=== PATIENT | male | born 1955 | race African-American/Black ===

== ENCOUNTER 2017-12-17 19:15 | Observation (INO) | payer OTHER ==
[2017-12-17] MEDS ORDERED: NS 0.9% 1000 ML* 1,000 ML IV ONE ×2 (19:18→20:18)
--- NOTE | 2017-12-17 19:40 | RAD ---
HISTORY: Neurological changes COMPARISONS: May 29, 2013 TECHNIQUE: Multiple contiguous axial CT scans were obtained of the head without intravenous contrast. FINDINGS: The study is limited by patient motion artifact. HEMORRHAGE/INFARCT: There is no hemorrhage or acute infarct. MASSES/SHIFT: There is no mass or shift. EXTRA-AXIAL SPACES: There are no extra-axial fluid collections. SULCI AND VENTRICLES: The sulci and ventricles are normal in size and position for the patient's stated age. CEREBRUM: There is right frontal encephalomalacia consistent with remote infarct. There is remote infarct of the left insula and betts radiata. There is a chronic lacunar infarct of the right caudate head. There is hypoattenuation of the periventricular and subcortical white matter. BRAINSTEM: There are no focal parenchymal abnormalities. CEREBELLUM: There are no focal parenchymal abnormalities. VESSELS: The vessels are grossly normal. PARANASAL SINUSES: The paranasal sinuses are clear. ORBITS: The orbits are unremarkable. BONES AND SOFT TISSUE: No bone or soft tissue abnormalities are noted. OTHER: None IMPRESSION: REMOTE INFARCTS. CHRONIC SMALL VESSEL ISCHEMIC CHANGES. NO ACUTE INTRACRANIAL PATHOLOGY. PRELIMINARY FINDINGS WERE DISCUSSED WITH DR. GUEVARA AT APPROXIMATELY 7:34 PM ON DECEMBER 17, 2017.
[2017-12-17 19:54] LABS: ABS Basophils 0 10^3/ul (0-0.2); ABS Eosinophils 0.1 10^3/ul (0-0.6); ABS Lymphocytes 1.3 10^3/ul (1.0-4.8); ABS Monocytes 0.3 10^3/ul (0-0.8); ABS Neutrophils 2.2 10^3/ul (1.5-7.7); ABS Nucleated RBC 0 10^3/ul; Eosinophil % 2.5 % (0-6); Hematocrit 43 % (42-52); Hemoglobin 14.7 g/dl (14.0-18.0); Lymphocyte % 32.3 % (25-47); Mean Corpuscular HGB Conc 34 g/dl (31-36); Mean Corpuscular Hemoglobin 30 pg (27-31); Mean Corpuscular Volume 88 fL (80-94); Mean Platelet Volume 9 um3 (7.4-10.4); Nucleated Red Blood Cells % 0.1; Platelet Count 183 10^3/ul (150-450); Red Blood Count 4.93 10^6/ul (4.0-5.4); Red Cell Distribution Width 13 % (10.5-15)
[2017-12-17] MEDS ORDERED: levETIRAcetam IV* 1,000 MG in NS 0.9% 100 ML* 100 ML IVPB SCH (20:00)
[2017-12-17 20:09] LABS: INR 1.02 (0.77-1.02)
--- NOTE | 2017-12-17 20:32 | RAD ---
HISTORY: Neurological changes COMPARISONS: May 29, 2013 VIEWS: 1: frontal portable view of the chest at 8:12 PM FINDINGS: LINES AND TUBES: None. CARDIOMEDIASTINAL SILHOUETTE: The cardiomediastinal silhouette is normal for portable technique. PLEURA: The costophrenic angles are sharp. No pleural abnormalities are noted. LUNG PARENCHYMA: The lungs are clear. ABDOMEN: The upper abdomen is clear. There is no subphrenic gas. BONES AND SOFT TISSUES: No bone or soft tissue abnormalities are noted. IMPRESSION: NO ACTIVE CARDIOPULMONARY DISEASE.
[2017-12-17] MEDS ORDERED: Ondansetron INJ* 2 MG/ML VIAL IV PRN (21:47)
[2017-12-17] MEDS ORDERED: CMCS: Melatonin (NF) 3 MG TAB PO PRN (21:47)
--- NOTE | 2017-12-17 21:48 | ED ---
Hortencia Quezada Edward, scribed for Gayatri Thurston MD on 12/17/17 at 1930 . Neurological HPI - HPI Summary HPI Summary: 62 y/o male BIBA c/o whole body shakes earlier today, witnessed. Associated sx: foaming from the mouth, unresponsiveness and urinary incontinence. PMHx CVA 2012 w/ R sided weakness and 2015 R side CVA L side weakness, no PMHx seizures. Pt is wheelchair bound and does not walk. Pt was sitting at home watching TV with his daughter and watching when the pt's symptoms started. The symptoms are typical for a seizure. In the ED the pt does not c/o of new weakness. Pt states he is at his baseline. - History of Current Complaint Stated Complaint: CODE SAN Hx Obtained From: Patient Onset/Duration: Sudden Onset, Resolved Number of Seizures: 1 Character: Other: - whole body shakes, foaming from the mouth, urinary incontinence Frequency: Episodes x___ - 1 Seizure Character: Generalized Aggravating: Nothing Alleviating: Nothing Associated Signs and Symptoms: Positive: Seizure, Incontinent Bladder/Bowel - Additional Pertinent History Primary Care Physician: [id number] - Allergy/Home Medications Allergies/Adverse Reactions: Allergies Allergy/AdvReac Type Severity Reaction Status Date / Time No Known Allergies Allergy Verified 08/20/16 18:34 PMH/Surg Hx/FS Hx/Imm Hx Previously Healthy: No Endocrine/Hematology History: Reports: Hx Anticoagulant Therapy - BABY ASA DAILY Cardiovascular History: Reports: Hx Hypercholesterolemia, Hx Hypertension Denies: Hx Pacemaker/ICD History: Reports: Other Problems/Disorders - prostate ca Sensory History: Reports: Hx Contacts or Glasses Denies: Hx Hearing Aid Opthamlomology History: Reports: Hx Contacts or Glasses Neurological History: Comment Only: Hx Transient Ischemic Attacks (TIA) - pt states unsure, admission dx CVA Psychiatric History: Denies: Hx Panic Disorder - Cancer History Cancer Type, Location and Year: prostate Hx Radiation Therapy: Yes - Surgical History Surgery Procedure, Year, and Place: hernia surgery,prostate - Social History Alcohol Use: None Substance Use Type: Reports: None Smoking Status (MU): Never Smoked Tobacco Review of Systems Constitutional: Negative Eyes: Negative ENT: Negative Cardiovascular: Negative Respiratory: Negative Gastrointestinal: Negative Positive: incontinence - urinary Musculoskeletal: Negative Skin: Negative Neurological: Other - whole body shakes, unresponsiveness Psychological: Normal All Other Systems Reviewed And Are Negative: Yes Physical Exam - Summary Physical Exam Summary: VITAL SIGNS: Reviewed. GENERAL: ~Patient is a well-developed and nourished male who is lying comfortable in the stretcher. Patient is not in any acute respiratory distress. HEAD AND FACE: No signs of trauma. No ecchymosis, hematomas or skull depressions. No sinus tenderness. EYES: PERRLA, EOMI x 2, No injected conjunctiva, no nystagmus. EARS: Hearing grossly intact. Ear canals and tympanic membranes are within normal limits. MOUTH: Oropharynx within normal limits. NECK: Supple, trachea is midline, no adenopathy, no JVD, no carotid bruit, no c- spine tenderness, neck with full ROM. CHEST: Symmetric, no tenderness at palpation LUNGS: Clear to auscultation bilaterally. No wheezing or crackles. CVS: Regular rate and rhythm, S1 and S2 present, no murmurs or gallops appreciated. ABDOMEN: Soft, non-tender. No signs of distention. No rebound no guarding, and no masses palpated. Bowel sounds are normal. EXTREMITIES: FROM in major joints. No edema, no cyanosis or clubbing. NEURO: Alert and oriented x 3. Speech is hoarse but not slurred. Mild L side facial weakness, which is old. RUE 5/5 strength, LUE 4/5 strength which is old. Paraplegic spasticity of LE's. SKIN: Dry and warm Triage Information Reviewed: Yes Vital Signs Reviewed: Yes Diagnostics - Laboratory Result Diagrams: 12/17/17 19:45 12/17/17 19:45 Lab Statement: Any lab studies that have been ordered have been reviewed, and results considered in the medical decision making process. - Radiology CXR Xray Interpretation: No Acute Changes - No acute process Radiology Interpretation Completed By: ED Physician - CT BRAIN CT CT Interpretation: No Acute Changes - Old R side stroke with chronic changes CT Interpretation Completed By: ED Physician - Additional Comments Diagnostic Additional Comments: EKG - 19:46 - NSR @ 84 BPM. Normal axis. Normal interval. Non specific T wave changes in the inferior leads. Re-Evaluation - Re-Evaluation 19:50 Re-Evaluation Time: 19:50 Change: Unchanged - Discuss plan to treat with Keppra Course/Dx - Course Assessment/Plan: 62 y/o male BIBA. History of 2 CVA's. 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 Paged neurologist at [facility] and discussed the case. However, I believe the pt is not a candidate for CVA. CT shows no acute changes. Discussed the case with Dr. 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 Discussed with Dr. Mccullough at 20:20, who accepted the pt for admission. - Diagnoses Provider Diagnoses: New onset seizure - Physician Notifications Discussed Care Of Patient With: Gibson Mccullough Time Discussed With Above Provider: 20:20 Instructed by Provider To: Admit As Inpatient Discharge - Discharge Plan Condition: Stable Disposition: ADMITTED TO [facility] Referrals: Teddy Bridges MD [Primary Care Provider] - The documentation as recorded by the Hortencia nicole Edward accurately reflects the service I personally performed and the decisions made by me, Gayatri Thurston MD.
--- NOTE | 2017-12-17 22:38 | HP ---
H&P (Free Text) History and Physical: PCP: Ike Bridges MD Date/Time: 12/17/2017 2130 CC: shaking spell HPI: Mr Pelayo is a [place] male HX CVAs 2012 & 2015 who was at home in a wheelchair watching television when his daughter noticed him to suddenly begin shaking violently, be unresponsive, drool, & experience urinary incontinence. He denies any HX of the same. From his perspective, he recalls watching television and then his family was around him upset and asking him if he were OK. EMS had been called. He denies prodromal symptoms, specifically, focal shaking, visual changes, headache, focal W/N/T, or other issues. At this time, he and his family feel he is back to his baseline. ED initially called a penny castellanos as he has a L facial droop residual of his prior CVAs. However, he was eventually cleared of stroke via telemedicine, loaded with 1g levetiracetam, & admission requested. The case was reviewed with Mickie Barbosa MD neurology who agreed with conversion to PO levetiracetam in the AM. Additionally, an MRI brain WO & EEG in the AM. PMedHx L subcortical CVA 2012 R sided CVA 2015 prostate CA HTN HLD bladder wall mass resection 2006 complicated by abscess formation gout Ambulatory Orders Aspirin [Aspirin 81 MG TAB] 81 mg PO DAILY 12/17/17 Atorvastatin* [Lipitor 40 MG*] 40 mg PO BEDTIME 12/17/17 Baclofen TAB* [Lioresal TAB*] 30 mg PO BID 12/17/17 Clopidogrel TAB* [Plavix TAB*] 75 mg PO DAILY 12/17/17 Colchicine* [Colcrys*] 0.6 mg PO BID PRN 12/17/17 Lisinopril TAB* [Prinivil TAB*] 5 mg PO DAILY 12/17/17 Metoprolol Succinate [Metoprolol Succinate ER] 25 mg PO DAILY 12/17/17 traMADol TAB* [Ultram*] 50 mg PO Q6HR PRN 12/17/17 Allergies No Known Allergies Allergy (Verified 08/20/16 18:34) SocHx: FamHx: no tobacco, alcohol, or recreational drugs; lives with his ; full code status ROS: as above, otherwise reviewed and all were negative vitals: Vital Signs Temp 36.5 C 12/17/17 22:36 Pulse 78 12/17/17 22:36 Resp 14 12/17/17 22:36 BP 127/73 12/17/17 22:36 Pulse Ox 100 12/17/17 22:36 Intake & Output 12/17/17 12/17/17 12/18/17 11:59 23:59 11:59 Intake Total 110 Balance 110 Weight 71.033 kg Intake: IV Fluids 110 Constitutional: NAD, normally developed, well-nourished black male HEENM: atraumatic; sclera/conjunctiva: anicteric/clear; hearing: clinically intact; oropharynx: clear, mucosa moist Neck: soft tissue: non-tender; thyroid: normal Pulmonary: clear to auscultation bilaterally, good aeration, no accessory muscle use CV: RR/RR, normal S1S2, no carotid bruit, no jugular venous distention, 2+ B DP/ PT, no edema Abdominal: soft, non-distended, non-tender, no rebound/guarding/rigidity, normoactive bowel sounds, no hepatosplenomegaly or masses, no costovertebral angle tenderness Musculoskeletal: general: grossly intact ; gait: non-ambulatory at baseline, does get up with physical therapy Integumental: normal appearance and texture of exposed skin Psychiatric orientation: AA&O to PPS affect: calm mood: cooperative eye contact: good content: reliable responses: timely to mildly slowed insight: fair Testing: Lab Results 12/17/17 12/17/17 12/17/17 Range/Units 19:45 19:45 19:45 WBC 4.0 (3.5-10.8) 10^3/ul RBC 4.93 (4.0-5.4) 10^6/ul Hgb 14.7 (14.0-18.0) g/dl Hct 43 (42-52) % MCV 88 (80-94) fL MCH 30 (27-31) pg MCHC 34 (31-36) g/dl RDW 13 (10.5-15) % Plt Count 183 (150-450) 10^3/ul MPV 9 (7.4-10.4) um3 Neut % (Auto) 56.1 (38-83) % Lymph % (Auto) 32.3 (25-47) % Tensas % (Auto) 8.1 (1-9) % Eos % (Auto) 2.5 (0-6) % Baso % (Auto) 1.0 (0-2) % Absolute Neuts (auto) 2.2 (1.5-7.7) 10^3/ul Absolute Lymphs (auto) 1.3 (1.0-4.8) 10^3/ul Absolute Monos (auto) 0.3 (0-0.8) 10^3/ul Absolute Eos (auto) 0.1 (0-0.6) 10^3/ul Absolute Basos (auto) 0 (0-0.2) 10^3/ul Absolute Nucleated RBC 0 10^3/ul Nucleated RBC % 0.1 INR (Anticoag Therapy) 1.02 (0.77-1.02) APTT 26.9 (26.0-36.3) seconds Sodium 140 (133-145) mmol/L Potassium 4.2 (3.5-5.0) mmol/L Chloride 104 (101-111) mmol/L Carbon Dioxide 29 (22-32) mmol/L Anion Gap 7 (2-11) mmol/L BUN 14 (6-24) mg/dL Creatinine 1.15 (0.67-1.17) mg/dL Est GFR ( Amer) 82.3 (>60) Est GFR (Non-Af Amer) 64.0 (>60) BUN/Creatinine Ratio 12.2 (8-20) Glucose 78 (70-100) mg/dL Lactic Acid (0.5-2.0) mmol/L Calcium 9.7 (8.6-10.3) mg/dL Total Bilirubin 0.50 (0.2-1.0) mg/dL AST 18 (13-39) U/L ALT 16 (7-52) U/L Alkaline Phosphatase 69 (34-104) U/L Troponin I 0.00 (<0.04) ng/mL Total Protein 7.5 (6.4-8.9) g/dL Albumin 4.4 (3.2-5.2) g/dL Globulin 3.1 (2-4) g/dL Albumin/Globulin Ratio 1.4 (1-3) Triglycerides 38 mg/dL Cholesterol 121 mg/dL LDL Cholesterol 65 mg/dL HDL Cholesterol 48.0 mg/dL 01/21/18 Range/Units 19:45 WBC (3.5-10.8) 10^3/ul RBC (4.0-5.4) 10^6/ul Hgb (14.0-18.0) g/dl Hct (42-52) % MCV (80-94) fL MCH (27-31) pg MCHC (31-36) g/dl RDW (10.5-15) % Plt Count (150-450) 10^3/ul MPV (7.4-10.4) um3 Neut % (Auto) (38-83) % Lymph % (Auto) (25-47) % Tensas % (Auto) (1-9) % Eos % (Auto) (0-6) % Baso % (Auto) (0-2) % Absolute Neuts (auto) (1.5-7.7) 10^3/ul Absolute Lymphs (auto) (1.0-4.8) 10^3/ul Absolute Monos (auto) (0-0.8) 10^3/ul Absolute Eos (auto) (0-0.6) 10^3/ul Absolute Basos (auto) (0-0.2) 10^3/ul Absolute Nucleated RBC 10^3/ul Nucleated RBC % INR (Anticoag Therapy) (0.77-1.02) APTT (26.0-36.3) seconds Sodium (133-145) mmol/L Potassium (3.5-5.0) mmol/L Chloride (101-111) mmol/L Carbon Dioxide (22-32) mmol/L Anion Gap (2-11) mmol/L BUN (6-24) mg/dL Creatinine (0.67-1.17) mg/dL Est GFR ( Amer) (>60) Est GFR (Non-Af Amer) (>60) BUN/Creatinine Ratio (8-20) Glucose (70-100) mg/dL Lactic Acid 4.0 H* (0.5-2.0) mmol/L Calcium (8.6-10.3) mg/dL Total Bilirubin (0.2-1.0) mg/dL AST (13-39) U/L ALT (7-52) U/L Alkaline Phosphatase (34-104) U/L Troponin I (<0.04) ng/mL Total Protein (6.4-8.9) g/dL Albumin (3.2-5.2) g/dL Globulin (2-4) g/dL Albumin/Globulin Ratio (1-3) Triglycerides mg/dL Cholesterol mg/dL LDL Cholesterol mg/dL HDL Cholesterol mg/dL ECG, personally reviewed: NSR rate 84, no ischemia CXR, personally reviewed: IMPRESSION: NO ACTIVE CARDIOPULMONARY DISEASE. CT brain WO, personally reviewed: IMPRESSION: REMOTE INFARCTS. CHRONIC SMALL VESSEL ISCHEMIC CHANGES. NO ACUTE INTRACRANIAL PATHOLOGY. Impression: 62M HX CVAs 2012 & 2016 presents with new onset seizure DIAGNOSIS & PLAN Primary new onset seizure in setting of CVAs 2012/2015 : loaded with 1g IV levetiracetam, convert to 1g PO BID in AM : continue aspirin, clopidogrel, & baclofen : D/C tramadol : telemetry : supplemental oxygen : EEG in AM : MRI brain WO in AM : Mickie Barbosa MD neurology consulted, will evaluate in AM : supportive care Secondary prostate CA : no acute issues HTN : continue lisinopril & metoprolol HLD : continue atorvastatin gout : no acute issues Admission Rational: observation for new onset seizure DVTp: heparin SQ Code Status: full HCP:
[2017-12-18] MEDS: Acetaminophen TAB* 325 MG PO PRN ×2 (02:50→14:03)
[2017-12-18 02:55] LABS: Urine Appearance Clear; Urine Blood Negative (Negative); Urine Color Yellow; Urine Ketones Negative (Negative); Urine Protein Negative (Negative); Urine Specific Gravity 1.012 (1.010-1.030); Urine Urobilinogen Negative (Negative)
[2017-12-18] MEDS ORDERED: Gabapentin CAP(*) 300 MG PO ONE (05:42)
[2017-12-18] MEDS ORDERED: CMCS: Pantoprazole TAB (NF) 40 MG TAB PO SCH (06:00)
[2017-12-18] MEDS ORDERED: Aspirin EC Low Dose* 81 MG TAB.EC PO SCH (09:00)
[2017-12-18] MEDS ORDERED: Clopidogrel TAB* 75 MG PO SCH (09:00)
[2017-12-18] MEDS ORDERED: Docusate CAP* 100 MG PO SCH (09:00)
[2017-12-18] MEDS ORDERED: Lisinopril TAB* 5 MG PO SCH (09:00)
[2017-12-18] MEDS ORDERED: levETIRAcetam TAB* 500 MG PO SCH (09:00)
[2017-12-18] MEDS ORDERED: Baclofen TAB* 10 MG PO SCH (09:00)
[2017-12-18] MEDS ORDERED: Metoprolol Succinate XL TAB* 25 MG PO SCH (09:00)
--- NOTE | 2017-12-18 12:27 | RAD ---
HISTORY: Stroke workup COMPARISONS: March 04, 2013 TECHNIQUE: The following sequences were obtained of the head: Sagittal T1-weighted images, axial T2-weighted images, axial FLAIR images, axial susceptibility weighted images, axial T1-weighted images. Additionally, axial diffusion-weighted images were obtained with calculated apparent diffusion coefficients. FINDINGS: HEMORRHAGE/INFARCT: There is no hemorrhage or acute infarct. MASSES/SHIFT: There is no mass or shift. EXTRA-AXIAL SPACES/MENINGES: There are no extra-axial fluid collections. SULCI AND VENTRICLES: There is diffuse and proportional enlargement of the sulci and ventricles. CEREBRUM: There is encephalomalacia of the right superior frontal gyrus and of the left betts radiata consistent with remote infarct. This is developed from the 2015 examination. There is elevated T2/FLAIR signal in the periventricular and subcortical white matter. BRAINSTEM: There are no focal parenchymal abnormalities. CEREBELLUM: There are no focal parenchymal abnormalities. The cerebellar tonsils are normal in size and position. SELLA: The sella is normal. PINEAL: The pineal region is clear. CP ANGLE/TEMPORAL BONES: The labyrinthine structures are grossly normal. VESSELS: Normal flow-voids are noted within the visualized vertebral vasculature. DIFFUSION ABNORMALITIES: There are no diffusion abnormalities. PARANASAL SINUSES/MASTOIDS: The paranasal sinuses are clear. ORBITS: The orbits are unremarkable. BONES AND SOFT TISSUE: No bone or soft tissue abnormalities are noted. OTHER: None IMPRESSION: EVIDENCE OF MULTIFOCAL REMOTE INFARCT. NO RESTRICTED DIFFUSION TO SUGGEST ACUTE INFARCT.
[2017-12-18 15:56] VITALS: BP 103/70
[2017-12-18] MEDS ORDERED: Atorvastatin* 40 MG TAB PO SCH (21:00)
--- NOTE | 2017-12-18 22:59 | CONS ---
CONSULTATION REPORT: DATE OF CONSULT: 12/18/17 PATIENT OF: Dr. Ramirez. PRIMARY CARE PHYSICIAN: Dr. Bridges. HISTORY OF PRESENT ILLNESS: This is a 62-year-old, I am asked to evaluate for probable new onset of seizure. He has had two strokes in 2012 and 2015, that left him with a significant left hemiparesis. He was at home in his wheelchair (he is wheelchair bound) and his daughter noted him to develop bilateral shaking and was unresponsive and drooling and had urinary incontinence. His came in and also saw these symptoms. In the history, my witness to describe it to me was the . She also notes that his face was "twisted," but it is unclear which side it was twisted to. There was no aura preceding this and he has had no prior staring spells or shaking. When he was seen in the emergency room, he had a left facial droop which is a residual of his prior study. He was loaded with a gram of Keppra and he has had no further seizures. PAST MEDICAL HISTORY: He has had a past history of left subcortical stroke in 2012, right-sided CVA in 2016; prostate cancer; hyperlipidemia; hypertension; bladder wall mass resected in 2006 complicated by abscess formation and gout. MEDICATIONS: At home include: 1. Aspirin 81 mg daily. 2. Lipitor 40 mg daily. 3. Baclofen 30 mg b.i.d. 4. Plavix 75 mg daily. 5. Colchicine 0.6 b.i.d. 6. Lisinopril 5 mg daily. 7. Metoprolol 25 mg daily. 8. Tramadol 50 mg q. 6 hours p.r.n. ALLERGIES: He has no known allergies. SOCIAL HISTORY: He lives with his . There are no drugs, tobacco, or alcohol. REVIEW OF SYSTEMS: Negative in all 14 spheres other than the HPI. Of note, he is wheelchair bound. PHYSICAL EXAM: Temperature 98.1, pulse 77, respirations 15, blood pressure 116/ 79. He is alert and oriented. He could speak in full sentences, but has somewhat sparse speech which his states has been old since his stroke. Cranial nerves II through XII were intact, other than he has left facial weakness. He had a mild left pronator drift. He had a 5-/5 arm strength in his left arm, 4/5 strength in his left leg. Full strength in his entire right side. Reflexes were 1 on the right, 2 on the left. Toe was upgoing on the left , downgoing on the right. Sensation grossly intact to light touch. Chest: Clear. Cardiovascular: Regular rate and rhythm. Abdomen: Soft with positive bowel sounds. DIAGNOSTIC STUDIES/LAB DATA: I reviewed his MRI scan which showed diffuse white matter disease as well as evidence of past multifocal stroke. There was no acute stroke or acute process seen on MRI scan. His EKG showed normal sinus rhythm. Labs included normal CBC, INR, PTT. Normal CMP. Lactic acid was 4. He had a total LDL of 65. UA was normal. His EEG was normal. IMPRESSION: Mr. Pelayo had new onset of stroke that lasted for several minutes. It is most likely secondary to his past history of stroke. He has been started on Keppra and this will be maintained. Side effects have been discussed with him. I will be glad to see him as an outpatient and he will need a Keppra level before that. Thank you for sharing his care. [id number]/[facility] #: [id number] VASILE
--- NOTE | 2017-12-19 11:56 | EEG ---
ELECTROENCEPHALOGRAPHY: DATE OF STUDY: DATE OF DICTATION: 12/18/17 PATIENT OF: Dr. Mccullough. CLINICAL PROBLEM: This is a 62-year-old man being evaluated for new onset of seizures. There is a past history of stroke. MEDICATIONS: Include: 1. Baclofen. 2. Atorvastatin. 3. Aspirin. 4. Tramadol. 5. Metoprolol. 6. Lisinopril. 7. Plavix. 8. Colchicine. 9. He was started on Keppra. REPORT: With the patient awake, background cerebral activity consists of moderate amplitude posterior dominant 9 to 10 Hz rhythm, which attenuates with eye opening and reappears with eye closure. This patient's sleep background consists of diffuse irregular delta and theta activity. No activation procedures were performed. No epileptiform potentials, focal abnormalities, or major asymmetries of background are noted. CLINICAL IMPRESSION: This awake and asleep EEG is within normal limits. [id number]/[facility] #: [id number] MTDD
--- NOTE | 2017-12-19 18:42 | DS ---
DISCHARGE SUMMARY: DATE OF ADMISSION: 12/17/17 DATE OF DISCHARGE: 12/18/17 ADMITTING PROVIDER: Gibson Mccullough MD ATTENDING PHYSICIAN: Lewis Ramirez MD PRIMARY NEUROLOGIST: Dr. Barbosa. PRIMARY CARE PHYSICIAN: Dr. Bridges. CHIEF COMPLAINT: Observed seizure (new onset). PRINCIPAL DIAGNOSIS: New-onset seizure in the setting of known cerebrovascular accidents and daily tramadol use. 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 This is the first time he has ever experienced these symptoms. He does not recall the event. Denied any prodromal symptoms. He was evaluated by [facility] upon presentation to [facility] Emergency Room given his observed left facial droop; however , this was residual from his prior CVAs. He is essentially wheelchair bound with significant left lower extremity deficits and strength. The patient was loaded with 1 g IV levetiracetam and Dr. Barbosa of Neurology evaluated the patient. Hospital day #2, he had MRI of his brain, which showed old infarctions without any evidence of new and EEG was reported without any recurrent seizure activity. Dr. Barbosa recommended continuing levetiracetam at 750 mg p.o. b.i.d. with level check in 1 to 2 weeks and follow up with him in 4 to 6 weeks and cessation of his tramadol 50 mg p.o. q.6 hours p.r.n., which he has been taking regularly about 1 to 2 times per day. He initially also had CT of his head noncontrast, which also showed remote infarcts, chronic small bowel as well as ischemic changes. No acute intracranial pathology. Chest x-ray, which showed no acute active cardiopulmonary disease. He was afebrile, hemodynamically stable. DISCHARGE MEDICATIONS: Include: 1. Levetiracetam 750 mg p.o. b.i.d. 2. Aspirin 81 mg daily. 3. Atorvastatin 40 mg p.o. q.h.s. 4. Baclofen 30 mg p.o. b.i.d. 5. Plavix 75 mg p.o. daily. 6. Lisinopril 5 mg p.o. daily. 7. Colchicine 0.6 mg p.o. b.i.d. p.r.n. for gout. 8. Metoprolol 25 mg p.o. daily. 9. Percocet 1 tab p.o. q.6 hours p.r.n. (new) given the cessation of his tramadol 50 mg p.o. q.6 hours previously. DISCHARGE DIET: Heart healthy. DISCHARGE ACTIVITY LEVEL: No restrictions but previously confined to a wheelchair given significant left greater than right weakness especially in his lower extremity. FOLLOWUP: Please follow up with primary care provider, Dr. Teddy Bridges, within 5 days of discharge and Dr. Sergio Barbosa within 4 to 6 weeks. He is unable to drive but given new-onset seizure, he needs to have levetiracetam level checked within 1 to 2 weeks. TIME SPENT ON DISCHARGE: Thirty-five minutes. [id number]/[facility] #: [id number] VASILE
== END 2017-12-18 17:30 | disposition home or self-care (01) ==
LOC: ED 19:15 → MED 21:36
PROVIDERS: ADMIT Hospitalist; ATTEND Internal Medicine
DX: R56.9 Unspecified convulsions (principal); Z79.82 Long term (current) use of aspirin; Z86.73 Personal history of transient ischemic attack (TIA), and cerebral infarction without residual deficits; Z85.46 Personal history of malignant neoplasm of prostate; Z86.79 Personal history of other diseases of the circulatory system; Z87.39 Personal history of other diseases of the musculoskeletal system and connective tissue; Z79.891 Long term (current) use of opiate analgesic
CPT/HCPCS: 36415; 70450; 70551; 71045; 80053; 80061; 81003; 83605; 84484; 85025; 85610; 85730; 93005; 95819; 96374; 99284; A9270-GY